=== PATIENT | female | born 1945 | race Caucasian/White ===

== ENCOUNTER 2018-09-19 09:22 | Day surgery (SDC) | payer MEDICARE, SELFPAY ==
[2018-09-19 10:00] VITALS: BP 175/81; PULSE 67; RESP 15; TEMP 36.5; O2SAT 100
[2018-09-19 10:05] VITALS: BMI 20.9
[2018-09-19] MEDS: PROPARACAINE 0.5% OPHTH SOL 2 DROPS EYE-OP (10:05)
[2018-09-19] MEDS: CATARACT EYE COMPOUND (10 DROPS/SYRINGE) 3 DROPS EYE-OP (10:10)
--- NOTE | 2018-09-19 11:30 | PM.PREOP ---
Pre-operative Note Interval Note History & Physical reviewed/Exam performed by Physician: No Changes to H&P: No
--- NOTE | 2018-09-19 11:32 | P.OP_ITS ---
Operative Date/Time/Diagnoses Pre-op diagnosis: Nuclear cataract right eye Procedure & Clinicians Procedure: Cataract Surgery Same procedure as scheduled: Yes Surgeon: Cristobal Santana Anesthesia Type: MAC +/- and Sedation Operative Notes Procedure in detail: Patient brought to the operating suite. Tetracaine drops placed in the right eye. Marking instrument was used to raulito the vertical and horizontal meridians. Patient was prepped and draped in sterile manner. Wire lid speculum was placed in the eye. Marking instrument was used to raulito the 5 degree meridian. Betadine drops were placed on the eye. This was irrigated. Lidocaine jelly was placed on the eye. A paracentesis port was created with a side-port blade. 0.1 mL 1% preservative free lidocaine was injected into the anterior chamber. The anterior chamber was deepened with viscoelastic. 2.6 mm keratome was used to create a temporal clear corneal incision. Cystotome and Utr noah forceps were used to create continuous tear capsulorrhexis. Balanced salt solution was used to hydro dissect the nucleus. The phacoemulsification handpiece was inserted and the nucleus was removed using the stop and chop technique. The irrigation aspiration handpiece was inserted and the remaining cortex was removed. Anterior chamber was deepened with viscoelastic. An Baker [id number] intraocular lens with a power of 21.0 was injected into the capsular bag. Irrigation aspiration handpiece was inserted and the remaining viscoelastic was removed. The lens was rotated to the 5 degree meridian. Incision was hydrated with balanced salt solution and found to be leak free with pressure with Weck- Vonnie sponges. 0.1 mL Vigamox injected anterior chamber. 0.3 mL Kenalog 10 mg was injected subconjunctivally. Lid speculum was removed. The patient left the operating room in excellent condition. Complications: none Condition: stable Disposition: same day surgery
[2018-09-19] MEDS: PHENYLEPHRINE/LIDOCAINE VIAL (OR) 0.2 ML EYE-OP (11:48)
[2018-09-19] MEDS: MOXIFLOXACIN OPHTH DROPS 3 ML BOTTLE 2 DROPS INJ (11:49)
[2018-09-19] MEDS: LIDOCAINE JELLY 2% 5 ML 1 APPLIC TOP (11:49)
[2018-09-19] MEDS: TRIAMCINOLONE 50 MG/5 ML VIAL INJ (11:49)
[2018-09-19] MEDS: CHONDROIDTIN/SOD HYALURONATE 1.05 ML SYRINGE INTRAOCULA (11:49)
[2018-09-19] MEDS: BALANCED SALT IRRIG SOLN NO.2 500 ML, EPINEPHrine 1 MG IRR (11:50)
[2018-09-19] MEDS: TETRACAINE 0.5% OPHTH DROPS 4 ML 2 DROPS EYE-OP (11:50)
[2018-09-19 12:06] VITALS: BP 154/72; PULSE 58; RESP 16; TEMP 36.4; O2SAT 99
== END 2018-09-19 12:22 ==
PROVIDERS: Visit Provider Ophthalmology
DX: H25.11 Age-related nuclear cataract, right eye (principal); E11.9 Type 2 diabetes mellitus without complications; Z79.84 Long term (current) use of oral hypoglycemic drugs; F33.41 Major depressive disorder, recurrent, in partial remission; R25.1 Tremor, unspecified
CPT/HCPCS: J0171; J2250; J3010; J3301; V2787

== ENCOUNTER 2018-10-03 08:59 | Day surgery (SDC) | payer MEDICARE, SELFPAY ==
[2018-10-03] MEDS: PROPARACAINE 0.5% OPHTH SOL 2 DROPS EYE-OP (09:24)
[2018-10-03 09:27] VITALS: BP 159/82; PULSE 63; RESP 16; TEMP 36.1; O2SAT 100
[2018-10-03] MEDS: CATARACT EYE COMPOUND (10 DROPS/SYRINGE) 3 DROPS EYE-OP (09:28)
[2018-10-03 09:30] VITALS: BMI 23.0
--- NOTE | 2018-10-03 10:11 | PM.PREOP ---
Pre-operative Note Interval Note History & Physical reviewed/Exam performed by Physician: No Changes to H&P: No
--- NOTE | 2018-10-03 10:13 | P.OP_ITS ---
Operative Date/Time/Diagnoses Pre-op diagnosis: Nuclear Cataract Left eye Post-op diagnosis: same Procedure & Clinicians Surgeon: Cristobal Santana Anesthesia Type: MAC +/- and Sedation Operative Notes Procedure in detail: Patient brought to the operating suite. Tetracaine drops placed in the left eye. The marking instrument was used to raulito the vertical and horizontal meridians. Patient was prepped and draped in sterile manner. Wire lid speculum was placed in the eye. The marking instrument was used to raulito the 5 degree meridian. Betadine drops were placed on the eye. This was ir rigated. Lidocaine jelly was placed on the eye. A paracentesis port was created with a side-port blade. 0.1 mL 1% preservative free lidocaine was injected into the anterior chamber. The anterior chamber was deepened with viscoelastic. 2.6 mm keratome was used to create a temporal clear corneal incision. Cystotome and Utrata forceps were used to create continuous tear capsulorrhexis. Balanced salt solution was used to hydro dissect the nucleus. The phacoemulsification handpiece was inserted and the nucleus was removed using the stop and chop technique. The irrigation aspiration handpiece was inserted and the remaining cortex was removed. Anterior chamber was deepened with viscoelastic. An Baker [id number] intraocular lens with a power of 21.0 was injected into the capsular bag. Irrigation aspiration handpiece was inserted and the remaining viscoelastic was removed. The lens was rotated to the 5 degree meridian. Incision was hydrated with balanced salt solution and found to be leak free with pressure with Weck- Vonnie sponges. 0.1 mL Vigamox injected anterior chamber. 0.3 mL Kenalog 10 mg was injected subconjunctivally. Lid speculum was removed. The patient left the operating room in excellent condition. Complications: none Condition: stable Disposition: same day surgery
[2018-10-03] MEDS: PHENYLEPHRINE/LIDOCAINE VIAL (OR) 0.2 ML EYE-OP (10:20)
[2018-10-03] MEDS: TRIAMCINOLONE 50 MG/5 ML VIAL INJ (10:21)
[2018-10-03] MEDS: MOXIFLOXACIN OPHTH DROPS 3 ML BOTTLE 2 DROPS INJ (10:21)
[2018-10-03] MEDS: CHONDROIDTIN/SOD HYALURONATE 1.05 ML SYRINGE INTRAOCULA (10:21)
[2018-10-03] MEDS: BALANCED SALT IRRIG SOLN NO.2 500 ML, EPINEPHrine 1 MG IRR (10:22)
[2018-10-03] MEDS: TETRACAINE 0.5% OPHTH DROPS 4 ML 2 DROPS EYE-OP (10:22)
[2018-10-03] MEDS: LIDOCAINE JELLY 2% 5 ML 1 APPLIC TOP (10:22)
[2018-10-03 10:37] VITALS: BP 130/70; PULSE 57; RESP 15; TEMP 36.1; O2SAT 100
--- NOTE | 2018-10-03 10:42 | SUR.PHASEII ---
1035 - IV d/c'd intact. Pt. d/c'ing home
== END 2018-10-03 10:54 ==
LOC: OR 09:01
PROVIDERS: Visit Provider Ophthalmology
DX: H25.12 Age-related nuclear cataract, left eye (principal); Z79.84 Long term (current) use of oral hypoglycemic drugs; E11.9 Type 2 diabetes mellitus without complications
CPT/HCPCS: J0171; J2250; J3010; J3301; V2787

== ENCOUNTER → 2022-02-11 11:15 | Outpatient (CLI) | payer MEDICARE, SELFPAY ==
[2022-02-11 19:30] LABS: Add Manual Diff / Slide Review NO; Basophils Absolute Auto 100 /uL (0-100); Basophils Percent Auto 0.9 % (0-2); Eosinophils Absolute Auto 300 /uL (0-450); Eosinophils Percent Auto 5.4 % (2-4); Hematocrit 38.9 % (36-46); Hemoglobin 13.3 g/dL (12.0-16.0); Lymphocytes Absolute Auto 1600 /uL (1100-4500); Lymphocytes Percent Auto 24.8 % (25-40); Mean Corpuscular HGB Conc 34.3 % (30-36); Mean Corpuscular Hemoglobin 32.8 PG (26-34); Mean Corpuscular Volume 95.6 fL (80-100); Monocytes Absolute Auto 400 /uL (0-900); Monocytes Percent Auto 5.9 % (3-14); Neutrophils Absolute Auto 4000 /uL (1500-7000); Platelet Count 203 X10^3/uL (150-400); Red Blood Cell Count 4.07 X10^6/uL (4.0-5.2); Red Cell Distribution Width 13.6 % (11.6-14.8); White Blood Cell Count 6.3 X10^3/uL (4.5-11.0)
[2022-02-11 19:42] LABS: Creatinine Urine Random 168.9 mg/dL
[2022-02-11 19:46] LABS: Microalbumi Creatinin Ratio Ur 41.4 ug/mg CR (<30)
[2022-02-12 03:34] LABS: TSH w/ Reflex to FT4 2.51 uIU/mL (0.47-4.68)
[2022-02-12 03:38] LABS: Blood Urea Nitrogen 23 mg/dL (7-17); Calcium 10.7 mg/dL (8.4-10.2); Carbon Dioxide 30 mmol/L (22-32); Chloride 104 mmol/L (98-107); Cholesterol 205 mg/dL (140-199); Estimated Glomerular Filt Rate > 60 mL/min (>60); Glucose 132 mg/dL (80-110); HDL Cholesterol 72 mg/dL (40-60); HEMOLYSIS < 15 (0-50); LDL Cholesterol Calculated 96 mg/dL (<100); Potassium 4.2 mmol/L (3.4-5.1); Sodium 138 mmol/L (137-145); Triglycerides 184 mg/dL (35-150)
[2022-02-12 04:28] LABS: Vitamin B12 943 pg/mL (239-931)
[2022-02-12 17:00] LABS: Vitamin D 25 Hydroxy (D3) 38.8 ng/mL (30.0-100.0)
== END ==
PROVIDERS: PCP Family Medicine; Visit Provider Family Medicine
DX: E11.9 Type 2 diabetes mellitus without complications (principal); Z13.220 Encounter for screening for lipoid disorders; F33.0 Major depressive disorder, recurrent, mild; R25.1 Tremor, unspecified; R53.83 Other fatigue
CPT/HCPCS: 80048; 80061; 82043; 82306; 82570; 82607; 83036; 84443; 85025

== ENCOUNTER → 2022-05-17 11:27 | Outpatient (CLI) | payer MEDICARE, SELFPAY ==
[2022-05-17 19:11] LABS: BUN Creatinine Ratio 29.8 (6-22); Blood Urea Nitrogen 25 mg/dL (7-17); Calcium 10.3 mg/dL (8.4-10.2); Carbon Dioxide 29 mmol/L (22-32); Chloride 105 mmol/L (98-107); Estimated Glomerular Filt Rate > 60 mL/min (>60); Glucose 159 mg/dL (80-110); HEMOLYSIS < 15 (0-50); Potassium 3.9 mmol/L (3.4-5.1); Sodium 142 mmol/L (137-145)
[2022-05-17 19:16] LABS: Hemoglobin A1C% w Est Avg Glu 5.9 % (4.0-6.0)
[2022-05-17 20:13] LABS: Creatinine Urine Random 80.3 mg/dL
[2022-05-17 20:17] LABS: Microalbumi Creatinin Ratio Ur 102.1 ug/mg CR (<30); Microalbumin Urine Random 8.2 mg/dL (0-1.6)
[2022-05-19 10:47] LABS: Calcium 10.4 mg/dL (8.7-10.3); Parathyroid Hormone, Intact 46 pg/mL (15-65)
[2022-05-20 17:17] LABS: Albumin 3.6 g/dL (2.9-4.4); Alpha-1-Globulin 0.2 g/dL (0.0-0.4); Alpha-2-Globulin 0.7 g/dL (0.4-1.0); Gamma Globulin 1.1 g/dL (0.4-1.8); Globulin Total 2.9 g/dL (2.2-3.9); Protein, Total 6.5 g/dL (6.0-8.5)
== END ==
PROVIDERS: PCP Family Medicine; Visit Provider Family Medicine
DX: E11.29 Type 2 diabetes mellitus with other diabetic kidney complication (principal); E78.2 Mixed hyperlipidemia; E83.52 Hypercalcemia; I10 Essential (primary) hypertension; R80.9 Proteinuria, unspecified
CPT/HCPCS: 80048; 82043; 82310; 82570; 83036; 83970; 84155; 84165

== ENCOUNTER → 2022-12-14 16:54 | Outpatient (CLI) | payer MEDICARE, SELFPAY ==
[2022-12-14 17:53] LABS: Add Manual Diff / Slide Review NO; Basophils Absolute Auto 0 /uL (0-100); Basophils Percent Auto 0.6 % (0-2); Eosinophils Absolute Auto 700 /uL (0-450); Eosinophils Percent Auto 10.5 % (2-4); Hematocrit 34.4 % (36-46); Hemoglobin 11.8 g/dL (12.0-16.0); Lymphocytes Absolute Auto 1800 /uL (1100-4500); Lymphocytes Percent Auto 27.5 % (25-40); Mean Corpuscular HGB Conc 34.3 % (30-36); Mean Corpuscular Hemoglobin 32.4 PG (26-34); Mean Corpuscular Volume 94.5 fL (80-100); Monocytes Absolute Auto 400 /uL (0-900); Monocytes Percent Auto 6.2 % (3-14); Neutrophils Absolute Auto 3700 /uL (1500-7000); Neutrophils Percent Auto 55.2 % (50-75); Platelet Count 182 X10^3/uL (150-400); Red Blood Cell Count 3.64 X10^6/uL (4.0-5.2); Red Cell Distribution Width 14.1 % (11.6-14.8); White Blood Cell Count 6.7 X10^3/uL (4.5-11.0)
[2022-12-14 17:57] LABS: Alanine Aminotransferase 20 IU/L (<35); Albumin 4.5 g/dL (3.5-5.0); Albumin Globulin Ratio 1.3 (1.0-2.8); Alkaline Phosphatase 94 U/L (38-126); Aspartate Aminotransferase 23 IU/L (14-36); BUN Creatinine Ratio 32.5 (6-22); Bilirubin Total 0.6 mg/dL (0.2-1.3); Blood Urea Nitrogen 26 mg/dL (7-17); Calcium 10.6 mg/dL (8.4-10.2); Carbon Dioxide 28 mmol/L (22-32); Chloride 103 mmol/L (98-107); Cholesterol 154 mg/dL (140-199); Estimated Glomerular Filt Rate > 60 mL/min (>60); Globulin 3.4 g/dL (1.7-4.1); Glucose 110 mg/dL (80-110); HDL Cholesterol 75 mg/dL (40-60); HEMOLYSIS < 15 (0-50); LDL Cholesterol Calculated 43 mg/dL (<100); Potassium 3.8 mmol/L (3.4-5.1); Sodium 140 mmol/L (137-145); Total Protein 7.9 g/dL (6.3-8.2); Triglycerides 178 mg/dL (35-150)
[2022-12-16 05:32] LABS: Labcorp Hemoglobin (Hb) A1c 6.7 % (4.8-5.6)
[2022-12-16 14:58] LABS: Parathyroid Hormone, Intact 51 pg/mL (15-65)
== END ==
PROVIDERS: PCP Family Medicine; Referring Provider Family Medicine; Visit Provider Family Medicine
DX: E11.29 Type 2 diabetes mellitus with other diabetic kidney complication (principal); E11.9 Type 2 diabetes mellitus without complications; E78.2 Mixed hyperlipidemia; E83.52 Hypercalcemia; I10 Essential (primary) hypertension; R80.9 Proteinuria, unspecified
CPT/HCPCS: 36415; 80053; 80061; 82310; 83036; 83970; 85025

== ENCOUNTER → 2023-09-15 10:34 | Outpatient (CLI) | payer MEDICARE, SELFPAY ==
[2023-09-15 20:40] LABS: Reticulocyte Count, Percent 0.7 % (1.1-2.6)
[2023-09-15 20:41] LABS: Add Manual Diff / Slide Review NO; Basophils Absolute Auto 0 /uL (0-100); Basophils Percent Auto 0.4 % (0-2); Eosinophils Absolute Auto 300 /uL (0-450); Eosinophils Percent Auto 5.5 % (2-4); Hematocrit 37.9 % (36-46); Hemoglobin 12.8 g/dL (12.0-16.0); Lymphocytes Absolute Auto 1000 /uL (1100-4500); Lymphocytes Percent Auto 17.4 % (25-40); Mean Corpuscular HGB Conc 33.9 % (30-36); Mean Corpuscular Volume 94.5 fL (80-100); Monocytes Absolute Auto 300 /uL (0-900); Monocytes Percent Auto 6.2 % (3-14); Neutrophils Absolute Auto 4000 /uL (1500-7000); Neutrophils Percent Auto 70.5 % (50-75); Platelet Count 169 X10^3/uL (150-400); Red Blood Cell Count 4.02 X10^6/uL (4.0-5.2); Red Cell Distribution Width 14.2 % (11.6-14.8); White Blood Cell Count 5.6 X10^3/uL (4.5-11.0)
[2023-09-15 20:45] LABS: HEMOLYSIS < 15 (0-50); Iron 76 ug/dL (37-170)
[2023-09-15 20:52] LABS: Hemoglobin A1C% w Est Avg Glu 6.6 % (4.0-6.0)
[2023-09-15 21:01] LABS: BUN Creatinine Ratio 26.7 (6-22); Blood Urea Nitrogen 24 mg/dL (7-17); Calcium 10.8 mg/dL (8.4-10.2); Carbon Dioxide 30 mmol/L (22-32); Chloride 105 mmol/L (98-107); Estimated Glomerular Filt Rate > 60 mL/min (>60); Glucose 172 mg/dL (80-110); HDL Cholesterol 73 mg/dL (40-60); HEMOLYSIS < 15 (0-50); Sodium 143 mmol/L (137-145); Triglycerides 147 mg/dL (35-150)
[2023-09-15 21:05] LABS: Percent Iron Saturation 29 % (15-50); Total Iron Binding Capacity 263 ug/dL (265-497); Transferrin 223 mg/dL (206-381)
[2023-09-15 21:11] LABS: Creatinine Urine Random 94.5 mg/dL
[2023-09-15 21:18] LABS: Microalbumi Creatinin Ratio Ur 28.5 ug/mg CR (<30); Microalbumin Urine Random 2.7 mg/dL (0-1.6)
[2023-09-15 21:53] LABS: Cholesterol 140 mg/dL (140-199); LDL Cholesterol Calculated 38 mg/dL (<100)
== END ==
PROVIDERS: PCP Family Medicine; Visit Provider Family Medicine
DX: I10 Essential (primary) hypertension (principal); E78.2 Mixed hyperlipidemia; E83.52 Hypercalcemia; E11.29 Type 2 diabetes mellitus with other diabetic kidney complication; R80.9 Proteinuria, unspecified; R25.1 Tremor, unspecified; E11.9 Type 2 diabetes mellitus without complications; F32.9 Major depressive disorder, single episode, unspecified
CPT/HCPCS: 80048; 80061; 82043; 82570; 83036; 83540; 83550; 85025; 85045

== ENCOUNTER → 2023-10-24 10:31 | Outpatient (CLI) | payer MEDICARE, SELFPAY ==
[2023-10-24 19:39] LABS: BUN Creatinine Ratio 28.4 (6-22); Blood Urea Nitrogen 23 mg/dL (7-17); Calcium 10.4 mg/dL (8.4-10.2); Carbon Dioxide 29 mmol/L (22-32); Chloride 108 mmol/L (98-107); Estimated Glomerular Filt Rate > 60 mL/min (>60); Glucose 180 mg/dL (80-110); HEMOLYSIS < 15 (0-50); Potassium 3.8 mmol/L (3.4-5.1); Sodium 142 mmol/L (137-145)
== END ==
PROVIDERS: PCP Family Medicine; Visit Provider Family Medicine
DX: E83.52 Hypercalcemia (principal)
CPT/HCPCS: 80048

== ENCOUNTER → 2024-05-17 09:51 | Outpatient (CLI) | payer MEDICARE, SELFPAY ==
[2024-05-17 18:43] LABS: Add Manual Diff / Slide Review NO; Basophils Absolute Auto 0 /uL (0-100); Basophils Percent Auto 0.4 % (0-2); Eosinophils Absolute Auto 800 /uL (0-450); Eosinophils Percent Auto 10.8 % (2-4); Hematocrit 38.8 % (36-46); Lymphocytes Absolute Auto 1400 /uL (1100-4500); Lymphocytes Percent Auto 20.4 % (25-40); Mean Corpuscular HGB Conc 33.6 % (30-36); Mean Corpuscular Hemoglobin 32.3 PG (26-34); Mean Corpuscular Volume 96.1 fL (80-100); Monocytes Absolute Auto 400 /uL (0-900); Monocytes Percent Auto 6.1 % (3-14); Neutrophils Absolute Auto 4400 /uL (1500-7000); Neutrophils Percent Auto 62.3 % (50-75); Platelet Count 205 X10^3/uL (150-400); Red Blood Cell Count 4.03 X10^6/uL (4.0-5.2); Red Cell Distribution Width 14.2 % (11.6-14.8); White Blood Cell Count 7.1 X10^3/uL (4.5-11.0)
[2024-05-17 18:53] LABS: Hemoglobin A1C% w Est Avg Glu 6.4 % (4.0-6.0)
[2024-05-17 18:58] LABS: Alanine Aminotransferase 17 IU/L (<35); Albumin 3.9 g/dL (3.5-5.0); Albumin Globulin Ratio 1.3 (1.0-2.8); Alkaline Phosphatase 107 U/L (38-126); Aspartate Aminotransferase 25 IU/L (14-36); BUN Creatinine Ratio 29.2 (6-22); Bilirubin Total 0.6 mg/dL (0.2-1.3); Blood Urea Nitrogen 26 mg/dL (7-17); Calcium 10.7 mg/dL (8.4-10.2); Carbon Dioxide 27 mmol/L (22-32); Chloride 104 mmol/L (98-107); Cholesterol 165 mg/dL (140-199); Estimated Glomerular Filt Rate > 60 mL/min (>60); Glucose 214 mg/dL (80-110); HDL Cholesterol 94 mg/dL (40-60); HEMOLYSIS 16 (0-50); LDL Cholesterol Calculated 41 mg/dL (<100); Potassium 3.9 mmol/L (3.4-5.1); Sodium 138 mmol/L (137-145); Total Protein 6.9 g/dL (6.3-8.2); Triglycerides 150 mg/dL (35-150)
[2024-05-17 19:30] LABS: Creatinine Urine Random 95.71 mg/dL
[2024-05-17 19:37] LABS: Microalbumin Urine Random 5.2 mg/dL (0-1.6)
== END ==
PROVIDERS: PCP Family Medicine; Visit Provider Family Medicine
DX: I10 Essential (primary) hypertension (principal); E11.9 Type 2 diabetes mellitus without complications
CPT/HCPCS: 80053; 80061; 82043; 82570; 83036; 85025

== ENCOUNTER → 2024-11-06 10:28 | Outpatient (CLI) | payer MEDICARE, SELFPAY ==
[2024-11-06 19:51] LABS: Add Manual Diff / Slide Review NO; Basophils Absolute Auto 0 /uL (0-100); Basophils Percent Auto 0.5 % (0-2); Eosinophils Absolute Auto 300 /uL (0-450); Eosinophils Percent Auto 5.3 % (2-4); Hematocrit 39.1 % (36-46); Hemoglobin 13.1 g/dL (12.0-16.0); Lymphocytes Absolute Auto 1500 /uL (1100-4500); Mean Corpuscular HGB Conc 33.6 % (30-36); Mean Corpuscular Hemoglobin 32.2 PG (26-34); Mean Corpuscular Volume 95.8 fL (80-100); Monocytes Absolute Auto 400 /uL (0-900); Monocytes Percent Auto 7.2 % (3-14); Neutrophils Absolute Auto 3100 /uL (1500-7000); Platelet Count 169 X10^3/uL (150-400); Red Blood Cell Count 4.08 X10^6/uL (4.0-5.2); Red Cell Distribution Width 14.1 % (11.6-14.8); White Blood Cell Count 5.2 X10^3/uL (4.5-11.0)
[2024-11-06 20:02] LABS: BUN Creatinine Ratio 23.9 (6-22); Blood Urea Nitrogen 22 mg/dL (7-17); Calcium 11.1 mg/dL (8.4-10.2); Carbon Dioxide 28 mmol/L (22-32); Chloride 104 mmol/L (98-107); Cholesterol 157 mg/dL (140-199); Estimated Glomerular Filt Rate > 60 mL/min (>60); Glucose 171 mg/dL (80-110); HDL Cholesterol 95 mg/dL (40-60); HEMOLYSIS < 15 (0-50); LDL Cholesterol Calculated 39 mg/dL (<100); Sodium 140 mmol/L (137-145); Triglycerides 115 mg/dL (35-150)
[2024-11-06 20:31] LABS: Creatinine Urine Random 94.27 mg/dL
[2024-11-06 20:38] LABS: Microalbumin Urine Random 4.4 mg/dL (0-1.6)
== END ==
PROVIDERS: PCP Family Medicine; Visit Provider Family Medicine
DX: I10 Essential (primary) hypertension (principal); E78.2 Mixed hyperlipidemia; E11.29 Type 2 diabetes mellitus with other diabetic kidney complication; R80.9 Proteinuria, unspecified; E83.52 Hypercalcemia
CPT/HCPCS: 80048; 80061; 82043; 82570; 83036; 85025

== ENCOUNTER → 2024-11-14 11:36 | Outpatient (CLI) | payer MEDICARE, SELFPAY ==
[2024-11-17 07:09] LABS: Calcium 10.5 mg/dL (8.7-10.3); Parathyroid Hormone, Intact 45 pg/mL (15-65)
== END ==
PROVIDERS: PCP Family Medicine; Visit Provider Family Medicine
DX: E83.52 Hypercalcemia (principal)
CPT/HCPCS: 82310; 83970

== ENCOUNTER → 2025-07-18 09:50 | Outpatient (CLI) | payer MEDICARE, SELFPAY ==
[2025-07-18 19:15] LABS: Add Manual Diff / Slide Review NO; Hematocrit 38.6 % (36-46); Hemoglobin 13.2 g/dL (12.0-16.0); Lymphocytes Absolute Auto 1400 /uL (1100-4500); Mean Corpuscular HGB Conc 34.2 % (30-36); Mean Corpuscular Hemoglobin 32.3 PG (26-34); Mean Corpuscular Volume 94.3 fL (80-100); Platelet Count 176 X10^3/uL (150-400)
[2025-07-18 19:31] LABS: Hemoglobin A1C% w Est Avg Glu 6.5 % (4.0-6.0)
[2025-07-18 19:35] LABS: Blood Urea Nitrogen 23 mg/dL (7-17); Calcium 10.6 mg/dL (8.4-10.2); Carbon Dioxide 28 mmol/L (22-32); Chloride 104 mmol/L (98-107); Cholesterol 146 mg/dL (140-199); Estimated Glomerular Filt Rate 52 mL/min (>60); Glucose 188 mg/dL (70-99); HDL Cholesterol 107 mg/dL (40-60); HEMOLYSIS < 15 (0-50); Potassium 3.8 mmol/L (3.4-5.1); Sodium 140 mmol/L (137-145); Triglycerides 120 mg/dL (35-150)
[2025-07-18 19:36] LABS: Microalbumi Creatinin Ratio Ur 126.0 ug/mg CR (<30)
== END ==
PROVIDERS: PCP Family Medicine; Referring Provider Family Medicine; Visit Provider Family Medicine
DX: E11.9 Type 2 diabetes mellitus without complications (principal); E83.52 Hypercalcemia; E78.2 Mixed hyperlipidemia; I10 Essential (primary) hypertension; E11.29 Type 2 diabetes mellitus with other diabetic kidney complication; R80.9 Proteinuria, unspecified
CPT/HCPCS: 80048; 80061; 82043; 82310; 82570; 83036; 83970; 85025